=== PATIENT | female | born 1955 | race Caucasian/White ===

== ENCOUNTER 2022-09-24 09:21 | Day surgery (SDC) | payer MEDICARE ==
[~2022-09-24] VITALS: Ht 163.8 cm; Wt 59.0 kg
[2022-09-24] VITALS (16 sets, daily range): BP systolic 122–159; BP diastolic 68–82
[~2022-09-24 09:21] MED LIST: ASCO-196 PO; CALC-159 PO; COLL1POW3 PO; IBUP-1985 PO; LIDOcaine 1% W/epiNEPHrine 1:100,000 20ml vial ONE; LIONS MANE MUSHROOM; MAGNESIUM; PHYT100T PO; RED600TA PO; cocaine 4% topical solution 4ml bottle ONE; epiNEPHrine 1 mg/ml inj ONE; famotidine 20mg tablet PO ONE; mupirocin 2% ointment 22GM ONE; oxymetazoline 15 ML nasal spray NS ONE; ringers solution, lacted 1,000 ML IV SCH; tranexamic acid 100mg/ml inj. ONE; tranexamic acid inj. 1,000 MG in normal saline IV soln 100ML IV ONE
[2022-09-24] MEDS ORDERED: mupirocin 2% ointment 22GM ONE (11:16)
[2022-09-24] MEDS ORDERED: acetaminophen 1,000mg/100ml IV 100 ML IV PRN (12:40)
[2022-09-24] MEDS ORDERED: ringers solution, lacted 1,000 ML IV SCH (12:40)
[2022-09-24] MEDS ORDERED: hydrALAZINE 20mg/ml inj. IV PRN (12:40)
[2022-09-24] MEDS ORDERED: meperidine/PF 25mg/ml syringe IV PRN ×3 (12:40)
[2022-09-24] MEDS ORDERED: ondansetron/PF 4mg/2ml inj IV PRN (12:40)
[2022-09-24] MEDS ORDERED: proCHLORperazine 10 MG/2 ml inj IV PRN (12:40)
[2022-09-24] MEDS ORDERED: morphine 4 MG/ML inj SYRINge IV PRN (12:40)
[2022-09-24] MEDS ORDERED: labetalol 20mg/4ml (5mg/ml) syringe IV PRN (12:40)
[2022-09-24] MEDS ORDERED: morphine 2 MG/ML inj. syringe IV PRN (12:40)
[2022-09-24] MEDS ORDERED: sevoflurane 250ml liquid IH ONE (12:42)
[2022-09-24] MEDS ORDERED: midazolam 1 mg/ML 2ml injection ONE (12:50)
[2022-09-24] MEDS ORDERED: fentaNYL/PF 50MCG/1 ML 2ML syringe ONE (12:50)
[2022-09-24] MEDS ORDERED: propofol inj 20 ML IV ONE (13:57)
[2022-09-24] MEDS ORDERED: dexamethasone sod phosphate 4mg/ml inj. ONE (13:57)
[2022-09-24] MEDS ORDERED: ondansetron/PF 4mg/2ml inj ONE (13:57)
[2022-09-24] MEDS ORDERED: LIDOcaine 2% (20mg/ml) 5ml vial ONE (13:57)
--- NOTE | 2022-09-24 14:44 | NUR ---
Received from OR via [facility], accompanied by Anesthesiologist DR STONE and report given by Anesthesiologist AND INTERACTIVE MEDIA DIRECTOR. PT DROWSY, NO S/S OF DISTRESS/DISCOMFORT. PT W/LEFT JAVI CARBALLO IN PLACE, CDI. Addendum: 09/24/22 at 1618 by Hoa Clifford RN Amended: Links added.
[2022-09-24] MEDS ORDERED: salt irrigation nasal spray 45 ML SPRAY NS PRN (14:50)
--- NOTE | 2022-09-24 17:14 | NUR ---
LEFT COTTONNOID D/CD APPROXIMATELY 30 MINUTES AFTER PTS ARRIVAL, PT TOLERATED WELL. PT UP AND ABLE TO AMBULATE SAFELY, VOID X 1. PAIN TOLERABLE. D/C INSTRUCTIONS GIVEN AND GONE OVER W/PT WHO VERBALIZED UNDERSTANDING. PT D/C D TO HOME VIA W/C TO PRIVATE VEHICLE W/O INCIDENT. Addendum: 09/24/22 at 1739 by Hoa Clifford RN Amended: Links added.
== END 2022-09-24 17:14 | disposition home or self-care (01) ==
LOC: PAS 09:21
PROVIDERS: ATTEND Otolaryngology
DX: J32.8 Other chronic sinusitis (principal); J34.89 Other specified disorders of nose and nasal sinuses; J33.8 Other polyp of sinus; M85.80 Other specified disorders of bone density and structure, unspecified site; M19.90 Unspecified osteoarthritis, unspecified site; Z20.822 Contact with and (suspected) exposure to COVID-19; Z72.89 Other problems related to lifestyle; Z98.890 Other specified postprocedural states; Z90.721 Acquired absence of ovaries, unilateral; Z87.891 Personal history of nicotine dependence; Z79.899 Other long term (current) drug therapy
CPT/HCPCS: 31253; 31267; 36415; 61782; 82948; 87070; 87075; 87102; 87176; 93005; A6402; J1100; J2250; J2405; J2704; J3010; J3490; J7030; J7050; J7120; U0003; U0005; Z7506; Z7508; Z7512; 88304; 88311; 88312; A4618; A6449; A7000; J0171